=== PATIENT | female | born 1970 ===

== ENCOUNTER 2021-09-15 06:30 | Day surgery (SDC) | payer OTHER | END 2021-09-15 18:19 | disposition home or self-care (01) | LOC: CIR.AMB 06:30 | PROVIDERS: ATTEND Obstetrics & Gynecology | DX: O02.1 Missed abortion (principal); Z20.822 Contact with and (suspected) exposure to COVID-19 ==

== ENCOUNTER 2024-11-13 08:55 | Day surgery (SDC) | payer OTHER ==
[2024-11-06 09:34] VITALS: BP 112/70
[2024-11-06 10:34] LABS: INR 0.97; PARTIAL THROMBOPLASTIN TIME 26.8 SECONDS (22.0-34.0); PROTHROMBIN TIME 10.6 SECONDS (9.0-11.5)
[2024-11-06 10:57] LABS: ALBUMIN 4.1 gm/dL (3.4-5.0); BILIRUBIN TOTAL 0.44 mg/dL (0.3-1.2); CREATININE SERUM 0.77 mg/dL (0.55-1.02); GFR 77.54; GLOBULINA 3.4 G/DL (2.4-3.5); POTASSIUM 4.69 mEq/L (3.5-5.1); TOTAL PROTEIN 7.5 gm/dL (6.4-8.2)
[2024-11-06 11:04] LABS: HEMATOCRIT 40.6 % (36.0-45.00); HEMOGLOBIN 13.8 g/dL (12.0-15.00); MEAN CELL VOLUME 92.7 fL (80.00-100.00); MEAN CORPUSCULAR HEMOGLOBIN 31.5 pg (27.00-32.0); PLATELET COUNT 324 K/uL (150-450); RED BLOOD COUNT 4.38 M/uL (4.00-6.00); RED CELL DISTRIBUTION WIDTH 14.4 % (11.5-14.5)
[2024-11-06 11:17] LABS: URINE APPEARANCE CLEAR; URINE BILIRRUBIN NEGATIVE (NEGATIVE); URINE BLOOD SMALL; URINE COLOR YELLOW; URINE GLUCOSE NEGATIVE (NEGATIVE); URINE KETONE NEGATIVE (NEGATIVE); URINE LEUKOCYTE NEGATIVE; URINE NITRATE NEGATIVE; URINE PROTEIN NEGATIVE (NEGATIVE); URINE UROBILINOGEN 0.2 E.U./dl
[2024-11-06 11:18] LABS: URINE BACTERIA 199.4 uL (0.0-1933); URINE EPITHELIAL CELLS 61.8 uL (0.0-38.8); URINE RBC 12.3 uL (0.0-20.8); URINE WBC 10.6 uL (0.0-23.2)
[~2024-11-13] VITALS: Ht 167.6 cm; Wt 81.6 kg
[~2024-11-13 08:55] MED LIST: ZESTORETIC 10-1 EACH PO
[2024-11-13] MEDS ORDERED: MORPHINE SULFATE 4 MG/ML VIAL IV ONE ×2 (13:20→13:50)
== END 2024-11-13 15:15 | disposition home or self-care (01) ==
LOC: CIR.AMB 08:55
PROVIDERS: ATTEND Obstetrics & Gynecology
DX: N95.0 Postmenopausal bleeding (principal); Z88.6 Allergy status to analgesic agent